=== PATIENT | male | born 1960 | race Caucasian/White ===

== ENCOUNTER 2016-10-19 09:16 | Emergency (ER) | payer OTHER ==
[~2016-10-19] VITALS: Ht 182.9 cm; Wt 89.8 kg
[~2016-10-19 09:16] MED LIST: ASPIR-LOW81 MG PO; ATORVASTATIN CA20 MG PO; CEFTRIAXONE2 G1 INJ; CHOLESTEROL RE1 EACH PO; CHROMIUM400 MCG PO; CO Q-1050 MG PO; FISH OIL 1,001000 MG PO; LOSARTAN POTASS50 MG PO; METFORMIN HCL1000 MG PO; VITAMIN C500 M1 PO; [UNRECOGNIZED DRUG - OTHER] PO
--- NOTE | 2016-10-19 18:30 | EKG ---
[facility] [address] [place] [address] Signed Normal sinus rhythm Inferior infarct , age undetermined Abnormal ECG When compared with ECG of 19-OCT-2016 09:22, (Unconfirmed) Previous ECG has undetermined rhythm, needs review Questionable change in QRS duration Inferior infarct is now present Confirmed by ZAK DIAZ MD ([id number]) on 10/19/2016 6:30:32 PM Electronically Signed By: ZAK DIAZ MD 10/19/16 1830 PATIENT NAME: BOBBI KENT Electrocardiogram DATE OF : 58 PHYSICIAN: ZAK DIAZ MD REPORT #: [id number] REPORT IS CONFIDENTIAL AND NOT TO BE RELEASED WITHOUT AUTHORIZATION
--- NOTE | 2016-10-19 18:30 | EKG ---
[facility] [address] [facility] [place] [address] Signed Ventricular tachycardia Abnormal ECG No previous ECGs available Confirmed by ZAK DIAZ MD ([id number]) on 10/19/2016 6:30:16 PM Electronically Signed By: ZAK DIAZ MD 10/19/16 1830 PATIENT NAME: BOBBI KENT Electrocardiogram DATE OF : 58 PHYSICIAN: ZAK DIAZ MD REPORT #: [id number] REPORT IS CONFIDENTIAL AND NOT TO BE RELEASED WITHOUT AUTHORIZATION
[2016-11-02] MEDS ORDERED: MAGNESIUM400 M1 PO (18:41)
[2016-11-02] MEDS ORDERED: METOPROLOL TAR100 MG PO (18:44)
[2016-11-02] MEDS ORDERED: METOPROLOL SUCC50 MG PO (18:45)
[2016-11-02] MEDS ORDERED: NITROSTAT0.4 MG SL (18:46)
[2016-11-02] MEDS ORDERED: POTASSIUM 25 M25 MEQ PO (18:47)
[2016-11-02] MEDS ORDERED: EFFIENT10 MG PO (18:48)
[2016-11-02] MEDS ORDERED: HYDRALAZINE HCL50 MG PO (18:50)
== END 2016-10-19 10:43 | disposition short-term general hospital (02) ==
LOC: ED 09:16
DX: I47.2 Ventricular tachycardia (principal); I10 Essential (primary) hypertension; E11.9 Type 2 diabetes mellitus without complications; Z79.899 Other long term (current) drug therapy
CPT/HCPCS: 36556; 71010; 80053; 83735; 84484; 85025; 93005; 93010; 96361; 96374; 96375; 99285; J0153; J0282; J0696; J2001; J7030

== ENCOUNTER → 2016-11-02 | Emergency (ER) | payer OTHER ==
[~2016-11-02] VITALS: Ht 182.9 cm; Wt 89.8 kg
[~2016-11-02] MED LIST changes: +EFFIENT10 MG PO; +HYDRALAZINE HCL50 MG PO; +MAGNESIUM400 M1 PO; +METOPROLOL SUCC50 MG PO; +METOPROLOL TAR100 MG PO; +NITROSTAT0.4 MG SL; +POTASSIUM 25 M25 MEQ PO
--- NOTE | 2016-11-03 13:25 | EKG ---
[facility] [address] [facility] [place] [address] Signed Normal sinus rhythm Inferior infarct (cited on or before 19-OCT-2016) Abnormal ECG When compared with ECG of 19-OCT-2016 10:19, No significant change was found Confirmed by ZAK DIAZ MD ([id number]) on 11/03/2016 1:24:51 PM Electronically Signed By: ZAK DIAZ MD 11/03/16 1325 PATIENT NAME: BOBBI KENT FRANCO Electrocardiogram DATE OF : 58 PHYSICIAN: ZAK DIAZ MD REPORT #: [id number] REPORT IS CONFIDENTIAL AND NOT TO BE RELEASED WITHOUT AUTHORIZATION
== END | disposition home or self-care (01) ==
LOC: ED 18:25
DX: I10 Essential (primary) hypertension (principal); E11.9 Type 2 diabetes mellitus without complications; I49.01 Ventricular fibrillation; Z79.899 Other long term (current) drug therapy; Z79.84 Long term (current) use of oral hypoglycemic drugs; Z79.82 Long term (current) use of aspirin
CPT/HCPCS: 93005; 93010; 99283

== ENCOUNTER 2021-10-26 18:43 | Emergency (ER) | payer MEDICARE, OTHER ==
[~2021-10-26] VITALS: Ht 182.9 cm; Wt 100.3 kg
[2021-10-26] MEDS ORDERED: ALDACTONE25 MG PO (21:25)
== END 2021-10-26 22:23 | disposition home or self-care (01) ==
LOC: ED 18:43
DX: S61.431A Puncture wound without foreign body of right hand, initial encounter (principal); I10 Essential (primary) hypertension; E11.9 Type 2 diabetes mellitus without complications; Z79.84 Long term (current) use of oral hypoglycemic drugs; Z79.82 Long term (current) use of aspirin; Z79.899 Other long term (current) drug therapy; W27.8XXA Contact with other nonpowered hand tool, initial encounter
CPT/HCPCS: 90715; A9270